=== PATIENT | female | born 1935 | race Caucasian/White ===

== ENCOUNTER 2017-03-24 11:32 | Inpatient (IN) | payer MEDICARE ==
[~2017-03-24] VITALS: Ht 165.1 cm; Wt 61.9 kg
[2017-03-24] VITALS (8 sets, daily range): BP systolic 115–148; BP diastolic 51–64
--- NOTE | ~2017-03-24 | PR ---
[place], [place] PROGRESS NOTE NAME: JENNIFER PINEDO [facility] #: [id number] UNIT #: [id number] ROOM: 420 DOCTOR: LENIN LIZARRAGA MD,ANDRES BIRTHDATE: [birth year] DOS: 03/30/2017 SUBJECTIVE: She has been noted comfortable at this time without any acute distress. The patient underwent bilateral thoracentesis yesterday. The patient is with reduction of symptoms of shortness of breath reported. OBJECTIVE: VITAL SIGNS: Shows a normal temperature this morning, respiratory rate 20, heart rate 60, blood pressure 116/50. The pulse oxygen saturation on 3 liters nasal cannula was 94% saturation ____ decreased after thoracentesis. CARDIOVASCULAR: S1, S2 is audible. LUNGS: Improvement in air entry of the lung on the right side with decreased breath sounds in the left lower lung. There were no crackles heard. There was no wheezing. ABDOMEN: Soft and nontender. EXTREMITIES: Without any acute edema. LABORATORY DATA: The patient's CBC this morning, hemoglobin 9.7, hematocrit 30.9, WBC count normal, platelet count 113,000 mildly decreased. The CBC yesterday of the patient showed similar platelet count. The CBC of the patient on the of this month was noted with normal platelet count. The renal function panel today, BUN 45, creatinine 2.99, glucose 159, potassium 3.4, chloride of 92, CO2 of 32. Assessment of the pleural fluid analysis from yesterday: The pH for the patient's pleural fluid noted at 7.40, cholesterol less than 50, triglyceride of 10, total protein of 2.2. Glucose 121. Cell count was noted with WBC 580,000, and 86% monocytes. The second pleural fluid analysis for the patient was noted with 14,000 RBCs, 277 WBCs with 55% lymphocytes, 41% monocytes. Glucose 123, total protein of 2.2, LDH 113, pH 7.44, cholesterol less than 50, albumin 1.3. Both the pleural fluid was noted consistent with the diagnosis of a transudative effusion. Urinalysis, of showed 2+ leukocyte esterase. Chest x-ray post-thoracentesis review shows almost complete resolution of the pleural fluid on the right side with complete reexpansion of the lung, area of atelectasis, small pleural fluid in the left side still cannot be excluded with the current chest x-ray. IMPRESSION: 1. The patient who has been currently treated for acute congestive heart failure also noted upyfe-lc-delvoyh injury as well. 2. Transudative effusion was removed from both the pleural spaces at the present time. 3. Overall debility is advanced age. 4. Xmvsf-jl-rocpfjp hypoxic respiratory failure. PLAN OF TREATMENT: Monitoring of the kidney function by the Cardiology Services. The patient's Eliquis was resumed after thoracentesis for the patient's long-term anticoagulation with atrial fibrillation. Titrate oxygen to maintain saturation 92% or greater at the baseline for the patient as tolerated. Additional treatment changes will be made based on progression of the illness. [place], [place] PROGRESS NOTE NAME: JENNIFER PINEDO UNIT #: [id number] ROOM: [facility] DOCTOR: LENIN LIZARRAGA MD,ANDRES BIRTHDATE: [birth year] Other supportive plan of management and care. ANDRES PHELPS MD CM:PNTRANS [id number] ANDRES LIZARRAGA MD 03/31/17 0203 interface
--- NOTE | ~2017-03-24 | CON ---
[place], [place] REPORT OF CONSULTATION [id number] UN[facility] #: [id number] ROOM: 404 DOCTOR: LENIN LIZARRAGA MDANDRES BIRTHDATE: [birth year] DOS: 03/28/2017 PULMONARY CONSULTATION EVALUATION AND MANAGEMENT CONSULTATION REQUESTED BY: Hospitalist Services. REASON FOR CONSULTATION: Assess the patient for pleural effusions. The patient unable to communicate accurately. The patient with a history noted very poor historian, unable to answer the questions correctly. All the history contained in this document is actually review of the medical record by the primary care attending for this patient. Other relationship consultant's notes as well as a nurse's notes. HISTORY OF PRESENT ILLNESS: This is an 81-year-old white female, a resident of the nursing facility brought to the hospital. The patient has been currently treated for rehabilitation. The patient has been described symptoms of shortness of breath ongoing intermittently. The patient in the last several days with gradual progression. She has not been reported any symptoms of coughing, wheezing, or chest pain in the description. She described increasing edema of the lower extremities. The patient brought to the hospital for further assessment of current acute respiratory symptom noted with finding of congestive heart failure, started on diuretics and admitted to the hospital. REVIEW OF SYSTEMS: Cannot be completed since the patient orally intubated on mechanical ventilation. PAST MEDICAL HISTORY: 1. Essential hypertension. 2. Chronic respiratory failure, on oxygen use, the number of flow liters oxygen use was unknown. 3. Coronary artery disease, past myocardial infarction. 4. Questionable dementia. 5. Hypercholesterolemia. PAST SURGICAL HISTORY: 1. Cardiac catheterization and history of coronary artery stent insertion. 2. Appendectomy. 3. Bilateral cataract extraction, lens implantation. 4. Cholecystectomy. 5. Colonoscopy. 6. Hysterectomy. FAMILY HISTORY: Reported both parents has been reported as with unknown medical illnesses. MEDICATIONS: From the half-way were recorded as use of albuterol sulfate, amiodarone, Eliquis, aspirin, Coreg, Lasix oral 40 mg daily, magnesium oxide, Protonix, simvastatin, Aldactone, several other p.r.n. medications including vitamins including vitamin C and E, zinc, copper, lutein, and some others. [place], [place] REPORT OF CONSULTATION NAME: JENNIFER PINEDO UNIT #: [id number] ROOM: [facility] DOCTOR: LENIN LIZARRAGA MD,ANDRES BIRTHDATE: [birth year] DRUG ALLERGIES: Reported as allergies to: 1. PHENACETIN. 2. QUININE. PHYSICAL EXAMINATION: GENERAL: An 81-year-old female, who has been currently resting comfortably using oxygen supplementation without any acute distress at time of the assessment. VITAL SIGNS: Height for the patient recorded by nursing staff as 5 feet 1 inch, weight of 156 pounds, BMI of 25.9 with vital signs recorded normal since admission on 03/24/2017. The respiratory rate range between 18-20, heart rate of 63-67, blood pressure 110/49-128/60. Pulse oxygen saturation on 4-5 liters nasal cannula was recorded 95-98% saturation. HEENT: Examination shows head was atraumatic. Eyes nonicterus. NECK: Supple. JVD elevated at 45 degree angle was noted to the mid neck. CARDIOVASCULAR: S1, S2 is audible without any added murmurs. ABDOMEN: Noted with moderate obesity. Bowel sounds present without any tenderness. CENTRAL NERVOUS SYSTEM: The patient was noted without any focal neurologic deficit. Remaining examination could not be performed ____ the patient's current overall medical condition. MUSCULOSKELETAL: 2+ pitting edema noted. SKIN: Showed no lesions or rashes. LABORATORY DATA: CBC of 03/24, hemoglobin 8.9, hematocrit 30.0, WBC count normal, platelet count was normal. At that time, PT/INR was 1.2. On admission 03/24, ProBNP 33,552. The CBC of this morning essentially remains the same for the patient since admission except the platelet count currently noted mildly decreased 120,000. The CMP of patient, BUN 41, creatinine 2.87. The patient recorded in today's lab with a CO2 37. The BUN and creatinine on admission was noted with BUN 44, creatinine 2.69. The CT scan of the head, which was done for patient of 03/27, was reported as left ventricular enlargement, suggested possible normal pressure hydrocephalus. Ultrasound of the kidney that was obtained yesterday was reported as renal cortical thinning without any hydronephrosis. Review of the radiology data, the chest x-ray that was done, 1 view on admission 03/24/2017, shows gagpadwj-gd-slttl pleural fluid on the right side and clsqu-fl-jygtvflg pleural fluid on the right side with findings of interstitial edema and congestive heart failure. The chest x-ray that was repeated on 13th of this month shows similar finding since admission. The chest x-ray that was done, portable on 03/27/2017, shows finding of congestive heart failure, bilateral pleural fluid with partial reduction was noted. IMPRESSION: 1. The patient who has been currently admitted to the hospital noted with finding and symptoms consistent with acute congestive heart failure, possibly to start a diastolic dysfunction since the echocardiogram was noted normal left ventricular ejection fraction. The fluid was noted much greater on the right than the left side. However, atypical etiology of pleural fluid would be considered including malignancy less likely for any infection. 2. The patient with history of chronic kidney disease, very likely with [place], [place] REPORT OF CONSULTATION NAME: JENNIFER PINEDO UNIT #: [id number] ROOM: [facility] DOCTOR: ANDRES LEON MD BIRTHDATE: [birth year] superimposed acute kidney secondary to prerenal azotemia, congestive heart failure has been considered. 3. The patient with anemia, most likely of chronic disease for this patient without any evidence of active bleeding at the present time known from the GI tract or other areas. 4. Possibility of dementia. 5. The patient with acute hypoxic respiratory failure superimposed with chronic hypoxic respiratory failure, most likely related to the current congestive heart failure. PLAN OF TREATMENT: The patient has been getting Bumex orally 2 mg b.i.d. that will be continued. Fluid for the patient essentially remains consistent and persistent. Since admission the patient may benefit from thoracentesis bilaterally with ultrasound guidance, if agreed upon by the family members. The consent will be asked for them. Otherwise, continue the patient conservative treatment at this time with expectant improvement in the pleural fluid in the long-term. Usual care. Titrate oxygen maintain saturation 92% or greater. If the thoracentesis will be planned for this patient. Certainly, the Eliquis needs to be withheld. Other supportive therapy, plan of management, and care plan of treatment. Usual treatment, other supportive therapies. Thank you for allowing me to participate in the care of this patient. ANDRES PHELPS MD CM:CONSTR:REPORT OF CONSULTATION 1337 03/28/17 2030 interface
--- NOTE | ~2017-03-24 | PR ---
[place], [place] PROGRESS NOTE [id number] #: [id number] ROOM: 420 DOCTOR: LENIN LIZARRAGA MD,ANDRES BIRTHDATE: [birth year] DOS: 03/31/2017 SUBJECTIVE: She has been comfortably resting at this time, eating her breakfast. She was noted chronic senile hearing loss. She has ____ reported symptoms of shortness of breath, coughing, chest pain or sputum expectoration this morning. OBJECTIVE: VITAL SIGNS: Normal temperature, respiratory rate 18, heart rate 62, blood pressure 118/60, pulse oxygen saturation on 3 liters nasal cannula 98% saturation. HEENT: No acute change. NECK: Supple. CARDIOVASCULAR: S1, S2 audible. LUNGS: Without any wheeze or crackles present time. ABDOMEN: Soft, nontender. LABORATORY DATA: CBC this morning, normal WBC count and platelet count. The culture of the pleural fluid, no bacterial growth. IMPRESSION: Resolving congestive heart failure with bilateral pleural fluid. IMPRESSION: 1. The patient is status post thoracentesis progressively. 2. Overall debility. 3. Advanced age. PLAN OF TREATMENT: No change in pulmonary standpoint. correction facility assessment of the patient for transfer would be considered. Other supportive plan of management. Titrate the oxygen to maintain saturation 92% or greater. ANDRES PHELPS MD CM:PNTRANS 1205 [id number] ANDRES LIZARRAGA MD 03/31/17 1424 interface
--- NOTE | ~2017-03-24 | PR ---
[place], [place] PROGRESS NOTE NAME: JENNIFER PINEDO UNIT #: [id number] ROOM: 420 DOCTOR: LENIN LIZARRAGA MD,ANDRES BIRTHDATE: [birth year] DOS: 04/01/2017 SUBJECTIVE: She has been noted quite comfortable, resting on the bed without any distress. She has been noted chronic hard of hearing. OBJECTIVE: VITAL SIGNS: Normal temperature, respiratory rate 18, heart rate 60, blood pressure 113/53. The pulse oxygen saturation with 2 liters nasal cannula of 92% saturation. HEENT: Shows no acute change. NECK: Supple. CARDIOVASCULAR: S1, S2 audible. LUNGS: The patient was noted with moderate, decreased breath sounds. There were no crackles or wheezing. ABDOMEN: Soft, nontender. IMPRESSION: Stable respiratory status, resolving congestive heart failure, status post thoracentesis with improving acute hypoxic and chronic hypoxic respiratory failure. PLAN OF TREATMENT: No changes in the management, current therapy, titrate oxygen, maintain saturation 90% later, and transferred to the nursing facility upon acceptance. ANDRES PHELPS MD CM:PNEMILY [id number] ANDRES LIZARRAGA MD 04/01/17 1830 interface
--- NOTE | ~2017-03-24 | PROC NOTE ---
[place], [place] PROCEDURE NOTE NAME: [id number] #: [id number] ROOM: 420 DOCTOR: LENIN LIZARRAGA MD,ANDRES BIRTHDATE: [birth year] DOS: 03/29/2017 PROCEDURE: Right thoracentesis, ultrasound guided. PREOPERATIVE DIAGNOSIS: The patient with moderate pleural fluid. POSTOPERATIVE DIAGNOSIS: Removal of 350 mL mildly hemorrhagic pleural fluid from the right pleural space without any difficulty. PROCEDURE DESCRIPTION: Informed consent obtained from the patient's son. She was placed in sitting position. Ultrasound of the chest was performed. The site of thoracentesis in the right posterior lower chest wall was marked. After that, skin was cleaned with chlorhexidine solution. 1% lidocaine was administered in the skin intercostal space during administration of local anesthetic, right pleural space was entered. After that, small incision given in the skin. Turkel thoracentesis catheter introduced through the incision into the right pleural space. Pleural fluid was collected in vacuum bottles and the other specimen syringe. The pleural fluid sent for all the testing including cytology, pH, chemistry, cell count and differential. Procedure well tolerated. ANDRES PHELPS MD CM:PROCNOTE:PROCEDURE NOTE 1423 [id number] ANDRES LIZARRAGA MD
--- NOTE | ~2017-03-24 | PROC NOTE ---
[place], [place] PROCEDURE NOTE NAME: JENNIFER PINEDO [facility] #: [id number] UNIT #: [id number] ROOM: 420 DOCTOR: LENIN LIZARRAGA MD,ANDRES BIRTHDATE: [birth year] DOS: 03/29/2017 PROCEDURE: Left thoracentesis. PREOPERATIVE DIAGNOSIS: The patient with moderate left pleural fluid. POSTOPERATIVE DIAGNOSIS: Removal of 550 mL of pleural fluid from the left pleural space without any difficulty. PROCEDURE DESCRIPTION: Informed consent was already obtained. The ultrasound of the chest was personally performed. The site of thoracentesis was marked. Skin was cleaned with chlorhexidine solution. Lidocaine 1% was administered in the skin of the intercostal space. After that, a small amount of fluid was aspirated from the left pleural space. Small incision given in the skin. Turkel thoracentesis catheter inserted through the incision into the left pleural space without any difficulty. Total 550 mL pleural fluid was collected, which was sent for all the necessary tests including specimen for chemistry, cell count with the differential, and the pH as well as cytology. The procedure was well tolerated by the patient. Ultrasound of the chest was performed in the right and left sides, which does not show any complication. The chest x-ray was ordered for the patient for further assessment of the improvement in the aeration of the pleural ____. All the appropriate testing of the pleural fluid was ordered as well. Monitor results of the thoracentesis for this patient as well. ANDRES PHELPS MD CM:PROCNOTE:PROCEDURE NOTE 1425 [id number] ANDRES LIZARRAGA MD
--- NOTE | ~2017-03-24 | PR ---
[place], [place] PROGRESS NOTE [id number] #: [id number] ROOM: 404 DOCTOR: LUZ VU MD BIRTHDATE: [birth year] DOS: 03/28/2017 SUBJECTIVE: The patient was seen and examined. She is resting comfortably in bed. She is in no acute distress. PHYSICAL EXAMINATION: VITAL SIGNS: Showed temperature 98.0, pulse 72, respiratory rate 20, blood pressure 120/60. HEENT AND NECK: Shows no JVD. LUNGS: Diminished breath sounds. No wheeze. HEART: Normal S1, S2. No rub. ABDOMEN: Soft, nontender. No organomegaly. EXTREMITIES: Trace edema. SKIN: Showed no rash. LABORATORY DATA: Hemoglobin 8.8, white count of 6.1, platelets of 120. Sodium 141, potassium 4.0, CO2 of 37, BUN 41, creatinine of 2.9, calcium 8.5, phosphorus 3.0, magnesium 2.0, albumin of 2.9. IMPRESSION AND PLAN: 1. Chronic kidney disease with an unclear true baseline creatinine. The patient's creatinine levels have been stable. Continue to follow labs while in the hospital. Replace electrolytes as felt needed. 2. Apparent congestive heart failure. Continue ongoing supportive care. Diuretics as felt needed. The patient's CO2 is rising. Would watch volume status and consider decreasing Bumex. 3. Anemia. Suspect of chronic disease. H and H are fairly stable. Consideration can be made for workup of this and possible erythropoietin stimulating agents at some point. 4. Paroxysmal atrial fibrillation. The patient is on amiodarone and Eliquis. Continue ongoing supportive care. LUZ VU MD CM:PNTRANS [id number] LUZ VU MD 03/28/17 1704 interface
--- NOTE | ~2017-03-24 | PR ---
[place], [place] PROGRESS NOTE NAME: JENNIFER PINEDO UNIT #: [id number] ROOM: 420 DOCTOR: ANDRES LEON MD BIRTHDATE: [birth year] DOS: 03/29/2017 SUBJECTIVE: She has not been noted any ongoing acute new symptoms at this time. Shortness of breath was noted. She was continued diuretic therapy and other plan of management. The patient's son did agree for thoracentesis to be done today at the bedside for the patient for the assessment and management of the current pleural fluid, which was diagnostic and therapeutic at the same time. OBJECTIVE: VITAL SIGNS: For the patient which has been recorded showed normal temperature, respiratory rate 16, heart rate 52-58, blood pressure 132/56 and 119/63. Pulse oxygen saturation recorded as 94% on 3.5 liter nasal cannula. The intake for the patient as 960 and output 2150 mL, negative 1.190 liters. HEENT: Showed no acute change. NECK: Supple. CARDIOVASCULAR: S1, S2 audible. LUNGS: Decreased breath sounds lower portion of the lungs bilaterally. ABDOMEN: Soft, nontender. Bowel sounds present. EXTREMITIES: The patient is without any edema. LABORATORY DATA: Renal function panel today, BUN 47, creatinine 2.96. CO2 of 40. CBC this morning, hemoglobin 9.1, hematocrit 29.9, WBC count normal, platelet count was normal. IMPRESSION: 1. Bilateral pleural fluid greater on the left than the right side. 2. Acute kidney injury as well. 3. Metabolic alkalosis secondary to diuretic therapy for the patient as well. 4. Acute on chronic hypoxic respiratory failure. PLAN OF TREATMENT: Thoracentesis to be done for the patient at the bedside for this patient as the ultrasound assessment was performed. The moderate sized pleural fluid noted for this patient on the left side and small to moderate pleural fluid in the right side as well. The consent is already obtained for the patient's son. [place], [place] PROGRESS NOTE NAME: JENNIFER PINEDO UNIT #: [id number] ROOM: 420 DOCTOR: ANDRES LEON MD BIRTHDATE: [birth year] ANDRES PHELPS MD CM:PNTRANS [phone] ANDRES LIZARRAGA MD 03/29/172230 interface
[2017-03-24 12:40] LABS: BASO % 0.4 % (0.0-1.0); EOS % 0.5 % (1.0-4.0); HEMOGLOBIN 8.9 g/dl (12.0-16.0); LYMPH # 0.5 10*3/uL (1.3-4.4); LYMPH % 9.4 % (27.0-41.0); MEAN CELL VOLUME 103.4 fl (81.0-99.0); MEAN CORPUSCULAR HGB 30.7 pg (27.0-31.0); MEAN CORPUSCULAR HGB CONC 29.7 g/dl (33.0-37.0); MEAN PLATELET VOLUME 10.6 fl (9.6-12.3); MONO # 0.3 10*3/uL (0.1-1.0); MONO % 4.9 % (3.0-9.0); NEUT # 4.7 10*3/uL (2.3-7.9); NEUT % 84.3 % (47.0-73.0); PLATELET COUNT AUTOMATED 148 10*3/uL (130-400); RED CELL DISTRI WIDTH 18.5 % (0-14.5); WHITE BLOOD COUNT 5.5 10*3/uL (4.8-10.8)
[2017-03-24 12:49] LABS: INTERNATIONAL NORM RATIO 1.2 (2.0-3.5)
[2017-03-24 12:57] LABS: ALBUMIN 3.2 gm/dl (3.1-4.5); CREATININE 2.69 mg/dL (0.55-1.02); POTASSIUM 4.4 mmol/L (3.5-5.1); TOTAL PROTEIN 6.6 gm/dL (6.4-8.2); TROPONIN I 0.045 ng/ml (<0.045)
--- NOTE | 2017-03-24 14:13 | NUR ---
[facility] CATH OUTPUT 500 CC'S CLEAR PALE YELLOW AT THIS TIME AFTER BEING GIVEN IV LASIX (SEE EMAR).RESP EASY PULSE OX 94 ON 3 12L---TAMIE GARCIA RN
--- NOTE | 2017-03-24 14:52 | NUR ---
PT BEING ADMITTED.DNR CC BAND APPLIED. [facility] CARE STAFF MEMBER MABEL IS AWARE OF PT ADMISSION AT THIS TIME.---TAMIE GARCIA RN
--- NOTE | 2017-03-24 15:10 | NUR ---
A 81, admitted to , under the services of BRAD Clinton DO with a diagnosis of CHF. Chief complaint is SOB. Patient arrived via bed from ER. Monitor applied. Initial assessment completed. Vital signs taken and recorded. BRAD CLINTON DO notified of admission to the unit. Orders received. See assessment for past medical history, medications and allergies. Patient and/or family oriented to unit. [facility] reviewed. Clothing/patient valuable form completed. PARVEZ ECHEVARRIA
--- NOTE | 2017-03-24 15:15 | NUR ---
PT REPORTS THAT SHE HAS ALREADY HAD BOTH THE INFLUENZA AND PNEUMONIA VACCINES THIS SEASON.
[2017-03-24] MEDS ORDERED: ASPIRIN ADULT L81 M2 PO (15:47)
[2017-03-24] MEDS ORDERED: LASIX40 MG PO (15:47)
[2017-03-24] MEDS ORDERED: Magnesium Oxid400 MG PO (15:48)
[2017-03-24] MEDS ORDERED: ALDACTONE25 M1 PO (15:48)
[2017-03-24] MEDS ORDERED: PROTONIX40 MG PO (15:49)
[2017-03-24] MEDS ORDERED: AMIODARONE HCL400 MG PO (15:49)
[2017-03-24] MEDS ORDERED: SIMVASTATIN40 MG PO (15:50)
[2017-03-24] MEDS ORDERED: COREG6.25 MG PO (15:50)
[2017-03-24] MEDS ORDERED: ELIQUIS2.5 M1 PO (15:51)
[2017-03-24] MEDS ORDERED: PRESERVISION A1 EAC1 PO (15:51)
[2017-03-24] MEDS ORDERED: TYLENOL325 M1 PO (15:52)
[2017-03-24] MEDS ORDERED: ALBUTEROL0.63 MG/3 INH (15:53)
--- NOTE | 2017-03-24 15:56 | NUR ---
jose ledezma notified og pt arrival and med list verified.
[2017-03-25] VITALS: BP 99/40
--- NOTE | 2017-03-25 04:07 | NUR ---
PT RESTING IN BED. RESPIRATIONS ARE EASY AND REGULAR WITH NO DISTRESS NOTED.
[2017-03-25 08:00] VITALS: BP 117/44
[2017-03-25 08:23] LABS: ALBUMIN 3.1 gm/dl (3.1-4.5); BASO % 0.5 % (0.0-1.0); CREATININE 2.64 mg/dL (0.55-1.02); EOS # 0.2 10*3/uL (0.0-0.4); EOS % 2.8 % (1.0-4.0); HEMATOCRIT 28.7 % (37.0-47.0); HEMOGLOBIN 8.6 g/dl (12.0-16.0); LYMPH # 0.7 10*3/uL (1.3-4.4); LYMPH % 11.5 % (27.0-41.0); MEAN CELL VOLUME 102.1 fl (81.0-99.0); MEAN CORPUSCULAR HGB 30.6 pg (27.0-31.0); MEAN PLATELET VOLUME 11.4 fl (9.6-12.3); MONO # 0.4 10*3/uL (0.1-1.0); NEUT # 4.7 10*3/uL (2.3-7.9); NEUT % 77.9 % (47.0-73.0); PLATELET COUNT AUTOMATED 155 10*3/uL (130-400); POTASSIUM 4.3 mmol/L (3.5-5.1); RED BLOOD COUNT 2.81 10*6/uL (4.10-5.10); RED CELL DISTRI WIDTH 18.6 % (0-14.5); TOTAL PROTEIN 6.2 gm/dL (6.4-8.2)
--- NOTE | 2017-03-25 08:33 | NUR ---
[facility] Ok to return when medically stable for discharge.
[2017-03-25 08:35] LABS: FREE T4 1.41 ng/dl (0.76-1.46); THYROID STIM HORMONE (HS) 3.17 uIU/ml (0.358-4.75)
[2017-03-25 08:51] LABS: PHOSPHOROUS 3.6 mg/dL (2.5-4.9)
--- NOTE | 2017-03-25 09:00 | NUR ---
case management visits with patient, patient states she is from [facility] and would like to return when able
--- NOTE | 2017-03-25 09:22 | NUR ---
PHYSICAL THERAPY PAtient at xray. Amber Sarabia,PT
--- NOTE | 2017-03-25 09:27 | NUR ---
Patient not available for Occupational Therapy as she was out of her room for an xray. OTR will recheck at a later time. Aishwarya Abbasi OTR/l
[2017-03-25 09:55] LABS: VITAMIN D, 25-HYDROXY 38.8 ng/mL (30-100)
--- NOTE | 2017-03-25 11:15 | NUR ---
DR BENZ OFFICE NOTIFIED OF THE NEW CONSULT FOR ACUTE ON CHRONIC CHF
--- NOTE | 2017-03-25 11:31 | NUR ---
Nutritional Support Services Note: Discussing with pt cardiac diet and salt intake. Diet copy given to pt. Pt states her appetite is very good. Discouraged intake of high salt foods. Encouraged follow up if needed. Farzaneh Hou
--- NOTE | 2017-03-25 11:53 | NUR ---
Occupational Therapy evaluation completed this date on 4 with full eval to follow. Precautions include fall risk, max +2 for sit to stand,bush, IV UE,wheezing at rest,O2, high complexity level 84194. Recommend OT per POC and SNF upon d/c to enable max functioning in ADLS and functional mobility. Thank you for this referral. Aishwarya Abbasi OTR/l
[2017-03-25 12:00] VITALS: BP 102/60
--- NOTE | 2017-03-25 12:42 | NUR ---
PHYSICAL THERAPY PAtient evaluated on 4, full evaluation to follow. Continue with PT as per plan of care with fall, max (A) x 2, alarm and acute debility precautions. Suggest return to custodial care with PT prn to return to PLOF. PAtient is high complexity via chart review, tests and evaluation: [id number]. Thank you for this referral.Amber Salguero,PT
--- NOTE | 2017-03-25 13:48 | NUR ---
PHYSICAL THERAPY Patient presented to therapy with report of no pain , but needing to go to an eye doctor appointment tommorrow. Patient performed ther ex in sitting at EOB X 20 reps each LE in all planes. Patient transfered supine t ositting at EOB with Max A X 1. pATIENT TRANSFERED BACK TO SUPINE mAX a x 1. 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
[2017-03-25 16:00] VITALS: BP 124/60
[2017-03-25 20:00] VITALS: BP 115/54
[2017-03-26] VITALS: BP 110/52
--- NOTE | 2017-03-26 00:40 | NUR ---
24 HR chart check completed.
[2017-03-26 07:25] LABS: RETICULOCYTE % 3.44 % (0.50-2.50)
[2017-03-26 07:56] LABS: IRON 45 ug/dL (50-170); TOTAL IRON BINDING CAPACITY 264 ug/dl (250-450)
[2017-03-26 08:00] VITALS: BP 135/52
--- NOTE | 2017-03-26 08:25 | NUR ---
DR RAMEY IN TO SEE PT AT THIS TIME.
--- NOTE | 2017-03-26 08:35 | NUR ---
PT COMPLAINING OF SOB, STATES SHE DOESN'T FEEL LIKE SHE'S GETTING ENOUGH OXYGEN; O2 SAT CHECKED ONLY 88% ON 2L NC, INCREASED OXYGEN TO 4L NC, O2 SAT CAME UP TO 92%. I&E WHEEZES HEARD THROUGHOUT. AFTER INCREASING OXYGEN, PT STATES HER RESPIRATIONS ARE LESS LABORED. PT EATING BREAKFAST AT THIS TIME WITH ASSISTANCE OF THE PA. CALL LIGHT WITHIN REACH.
[2017-03-26 09:00] LABS: FERRITIN 253.6 ng/mL (10.0-291.0)
--- NOTE | 2017-03-26 09:19 | NUR ---
DR RAMEY CALLED REGARDING PT'S COMPLAINTS OF "MY HEAD AND STOMACH DOESN'T FEEL RIGHT" UPDATED ON PT'S VITALS AND HAVING TO INCREASE OXYGEN BACK TO 4L NC, PT AT 92%. PT NOT ON ULTIMATE HOOPS TRAINER DUE TO BEING DNR-CC, ONLY ONE TROPONIN DRAWN ON ADMISSION, WHICH WAS NEGATIVE. STATES HE WILL ORDER ZOFRAN AND WILL REASSESS PT IN AN HOUR.
--- NOTE | 2017-03-26 09:36 | NUR ---
MEDICATED WITH TYLENOL FOR COMPLAINTS OF HEADACHE. WILL MONITOR FOR EFFECTIVENESS. CALL LIGHT WITHIN REACH.
[2017-03-26 11:15] LABS: CREATININE 2.75 mg/dL (0.55-1.02); POTASSIUM 4.3 mmol/L (3.5-5.1)
--- NOTE | 2017-03-26 11:39 | NUR ---
MEDICATED PT WITH ZOFRAN FOR COMPLAINTS OF UPSET STOMACH. WILL MONITOR FOR EFFECTIVENESS. STATES EARLIER TYLENOL EFFECTIVE FOR HEADACHE RELIEF.
[2017-03-26 12:00] VITALS: BP 113/48
--- NOTE | 2017-03-26 12:30 | NUR ---
PT RESTING IN BED, NO DISTRESS NOTED. MEDICATIONS EFFECTIVE,
--- NOTE | 2017-03-26 13:07 | NUR ---
Pt was seen for 15 minutes & short session due to lunch arriving. With set up, pt washed face, combed hair & applied lotion to face & hands. Educated pt on correct breathing exercises (pursed lip breathing) to enhance ADL endurance with 2 cues for correct procedures. Continue with POC. Namita MARK
--- NOTE | 2017-03-26 14:52 | NUR ---
PHYSICAL THERAPY Patient refused therapy this date due to not feeling well and being very tired. RILEY MOORE PTA
[2017-03-26 16:00] VITALS: BP 105/44
--- NOTE | 2017-03-26 16:23 | NUR ---
DR BAUER IN TO SEE PT AT THIS TIME.
[2017-03-26 20:00] VITALS: BP 110/49
[2017-03-27] VITALS: BP 127/59
--- NOTE | 2017-03-27 00:40 | NUR ---
24 HR chart check completed.
--- NOTE | 2017-03-27 06:40 | NUR ---
Patient confused to where she is. Attempted to reorient. Patient wanting to talk with family. Called patient's son. He talked with her but she doesn't believe him. Wanting to talk to her doctor.
--- NOTE | 2017-03-27 06:44 | NUR ---
Called and notified Dr. Waddell regarding patient's confusion and wanting to talk with the doctor. He said he would come in a few minutes.
--- NOTE | 2017-03-27 06:46 | NUR ---
Dr. Waddell in to talk with patient. Patient remains confused. 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 Waddell talked with patient and was unable to reorient patient. He said he will turn this over to Dr. Graves. He said if she gets combative then call the doctors.
--- NOTE | 2017-03-27 07:00 | NUR ---
PT REFUSING MORNING BLOOD DRAW.
--- NOTE | 2017-03-27 07:40 | NUR ---
OCCUPATIONAL THERAPY CO-SIGN I approve of the Occupational Therapy notes written above. JAYLA SYKES OTR/Yoko
[2017-03-27 08:00] VITALS: BP 155/57
--- NOTE | 2017-03-27 08:01 | NUR ---
LAB CONTACTED TO REATTMEPT TO DRAW AM LABS.
[2017-03-27 08:13] LABS: BASO % 0.4 % (0.0-1.0); EOS # 0.2 10*3/uL (0.0-0.4); EOS % 2.6 % (1.0-4.0); HEMATOCRIT 34.1 % (37.0-47.0); HEMOGLOBIN 10.1 g/dl (12.0-16.0); LYMPH # 0.9 10*3/uL (1.3-4.4); MEAN CELL VOLUME 102.7 fl (81.0-99.0); MEAN CORPUSCULAR HGB 30.4 pg (27.0-31.0); MEAN CORPUSCULAR HGB CONC 29.6 g/dl (33.0-37.0); MEAN PLATELET VOLUME 10.4 fl (9.6-12.3); MONO # 0.5 10*3/uL (0.1-1.0); MONO % 6.4 % (3.0-9.0); NEUT # 6.5 10*3/uL (2.3-7.9); NEUT % 79.2 % (47.0-73.0); PLATELET COUNT AUTOMATED 137 10*3/uL (130-400); RED BLOOD COUNT 3.32 10*6/uL (4.10-5.10); RED CELL DISTRI WIDTH 18.2 % (0-14.5); WHITE BLOOD COUNT 8.2 10*3/uL (4.8-10.8)
[2017-03-27 08:27] LABS: ALBUMIN 3.4 gm/dl (3.1-4.5); CREATININE 2.87 mg/dL (0.55-1.02); PHOSPHOROUS 3.5 mg/dL (2.5-4.9); POTASSIUM 4.5 mmol/L (3.5-5.1); TOTAL PROTEIN 7.1 gm/dL (6.4-8.2)
--- NOTE | 2017-03-27 09:01 | NUR ---
[facility]
[2017-03-27 12:00] VITALS: BP 127/49
--- NOTE | 2017-03-27 12:45 | NUR ---
PATIENT SEEN 1:1 OT THIS DATE. PATIENT IDENTIFIED BY NAME AND DATE OF . PATIENT SEEN 17 MINUTES. PATIENT IN BED UPON ARRIVAL AND WILLING TO SIT EOB. COMPLETED SUPINE TO SIT EOB MOD A X 2. PATIENT DEMONSTRATED P/P+ SIT BAL EOB WITH MOD/MAX ASSISTS REQUIRED AND VERBAL CUES SECONDARY LEFT LATERAL LEAN. COMPLETED MINIMAL BUE AROM REACHING OVER HEAD WITH PATIENT DEMONSTRATING FATIGUE. PATIENT EASILY DISTRACTED. COMPLETED SIT TO SUPINE MOD A X 2 WITH PATIENT DEP PULL UP IN BED FOR INCREASE POSTURE. PATIENT IN BED WITH RAIL. BED ALARM, AND CALL LIGHT WITHIN REACH. ANNA WHITEHEAD/Yoko
--- NOTE | 2017-03-27 13:29 | NUR ---
PHYSICAL THERAPY Patient presented to therapy in supine with no complaints. Patient performed supine to sitting at EOB transfer with MAX A X 2. Patient performed sitting tolerance at EOB with MOD A X 2 for 10 minutes total. Patient had LEFT lean and poor posture during sitting tolerance requiring MOD A X 2 and verbal cues for the same. Patient was transfered back to supine in bed MAX X 2. Patient was left supine in bed with head raised and call light within reach. Patient's bed alarm was activated. RILEY MOORE PRODUCTION SUPPORT SPECIALIST
--- NOTE | 2017-03-27 14:19 | NUR ---
DR MEJIA OFFICE WAS CONTACTED FOR A NEW CONSULT FOR CKD.
--- NOTE | 2017-03-27 14:20 | NUR ---
ATTEMPTED TO CONTACT DR PHELPS BY ON CELL PHONE HOWEVER THERE WAS NO ANSWER.
--- NOTE | 2017-03-27 14:26 | NUR ---
DR. PHELPS WAS CONTACTED FOR A NEW CONSULT FOR PLUERAL EFFUSION.
[2017-03-27 15:16] LABS: URINE CREATININE RANDOM 13.1 mg/dL
[2017-03-27 16:00] VITALS: BP 115/54
[2017-03-27 20:00] VITALS: BP 142/57
[2017-03-28] VITALS: BP 104/52
[2017-03-28 06:52] LABS: BASO % 0.3 % (0.0-1.0); EOS # 0.2 10*3/uL (0.0-0.4); EOS % 2.5 % (1.0-4.0); HEMOGLOBIN 8.8 g/dl (12.0-16.0); LYMPH # 0.7 10*3/uL (1.3-4.4); LYMPH % 11.9 % (27.0-41.0); MEAN CELL VOLUME 100.7 fl (81.0-99.0); MEAN CORPUSCULAR HGB 30.6 pg (27.0-31.0); MEAN CORPUSCULAR HGB CONC 30.3 g/dl (33.0-37.0); MEAN PLATELET VOLUME 10.9 fl (9.6-12.3); MONO # 0.5 10*3/uL (0.1-1.0); MONO % 7.4 % (3.0-9.0); NEUT # 4.7 10*3/uL (2.3-7.9); NEUT % 77.6 % (47.0-73.0); PLATELET COUNT AUTOMATED 120 10*3/uL (130-400); RED BLOOD COUNT 2.88 10*6/uL (4.10-5.10); WHITE BLOOD COUNT 6.1 10*3/uL (4.8-10.8)
[2017-03-28 07:04] LABS: ALBUMIN 2.9 gm/dl (3.1-4.5); CREATININE 2.87 mg/dL (0.55-1.02); TOTAL PROTEIN 6.1 gm/dL (6.4-8.2)
[2017-03-28 08:00] VITALS: BP 126/52
[2017-03-28 12:00] VITALS: BP 128/60
--- NOTE | 2017-03-28 13:45 | NUR ---
DR. Moon called in and states he wants to do a BL thoracentesis on pt tomorrow if family is agreeable and to notify them of this. States to let him know what they say. I called pt son Rafat Dunbar and left a message. Will try again.
--- NOTE | 2017-03-28 15:38 | NUR ---
Physical Therapy Pt seen this PM for her therapy session. Pt was supine in bed upon arrival. Supine B LE ther ex performed in all planes x 20 reps. Max tactile cues provided for reinitiation during exercise, as well as verbal for proper sequence. Pt refused to do transfer because she just laid down to rest. Pt left supine in bed after therapy session with call light within reach. Sun Fernando, FILTER PLANT SUPERVISOR
[2017-03-28 16:00] VITALS: BP 98/50
--- NOTE | 2017-03-28 17:10 | NUR ---
Pt son and daughter in law here to visit. Updated on plan of care and Dr. Moon recommending BL thoracentesis is family is agreeable. Pt son states that he knows what this procedure is as his uncle had it. States he is agreeable to his mother having it. I notified Dr. Moon of this.
[2017-03-28 17:45] LABS: BILIRUBIN NEGATIVE (NEGATIVE); BLOOD 1+ (NEGATIVE); CLARITY CLEAR (CLEAR); COLOR YELLOW (YELLOW); GLUCOSE NEGATIVE (NEGATIVE); KETONE NEGATIVE (NEGATIVE); LEUKO ESTERASE 2+ (NEGATIVE); NITRITE NEGATIVE (NEGATIVE); UROBILINOGEN 0.2 E.U./dl (0.2-1.0)
[2017-03-28 18:02] LABS: BACTERIA 2+; EPITHELIAL CELLS 0-2; WBC 21-30 wbc/hpf (0-5)
[2017-03-28 20:01] VITALS: BP 131/53
--- NOTE | 2017-03-28 20:31 | NUR ---
ASSUMED CARE OF PT. PT IN BED, LAYING DOWN. BEDSIDE TABLE ACROSS LAP, WEARING NC. PT VOICES CONCERNS WITH STAFF AND HOSPITAL FOOD. AFTER TALKING WITH THE PT, THIS NURSE RETRIEVED THE PT A SMALL SNACK. PT SEEMS TO BE ANXIOUS DURING INITIAL SHIFT ASSESSMENT. WHEN CHECK THE PTs IV, IT WAS NO WHERE TO BE FOUND. PT STATED "I PULLED IT OUT. I DIDNT WANT IT IN." WHEN ASKED IF THIS NURSE COULD REPLACE IT, THE PT STATED "NO, I DONT WANT IT." PT SEEMED AGITATED. WILL CONTINUE TO MONITOR.
--- NOTE | 2017-03-28 20:48 | NUR ---
TALKED TO REGARDING PTs REFUSAL OF RESTARTING AN IV. PER , THE IV WILL NOT BE RESTARTED.
--- NOTE | 2017-03-28 23:02 | NUR ---
CALLED AND SPOKE TO CHANDAN REGARDING PT AGITATION AND ATTEMPTNG TO PULL OUT DOHERTY CATHETER. ORDERS RECEIVED
[2017-03-29] VITALS: BP 100/62
--- NOTE | 2017-03-29 02:44 | NUR ---
24HR CHART CHECK COMPLETED.
--- NOTE | 2017-03-29 05:39 | NUR ---
PT IN BED, EYES CLOSED, RESTING. PT EASILY AROUSED. TOLERATED MEDICATIONS WELL. WILL CONTINUE TO MONITOR.
[2017-03-29 07:45] LABS: BASO % 0.5 % (0.0-1.0); EOS # 0.2 10*3/uL (0.0-0.4); EOS % 2.7 % (1.0-4.0); HEMATOCRIT 29.9 % (37.0-47.0); HEMOGLOBIN 9.1 g/dl (12.0-16.0); LYMPH # 0.9 10*3/uL (1.3-4.4); LYMPH % 14.4 % (27.0-41.0); MEAN CORPUSCULAR HGB 30.4 pg (27.0-31.0); MEAN CORPUSCULAR HGB CONC 30.4 g/dl (33.0-37.0); MEAN PLATELET VOLUME 11.4 fl (9.6-12.3); MONO # 0.5 10*3/uL (0.1-1.0); MONO % 8.7 % (3.0-9.0); NEUT # 4.5 10*3/uL (2.3-7.9); NEUT % 73.2 % (47.0-73.0); PLATELET COUNT AUTOMATED 113 10*3/uL (130-400); RED BLOOD COUNT 2.99 10*6/uL (4.10-5.10); RED CELL DISTRI WIDTH 17.9 % (0-14.5); WHITE BLOOD COUNT 6.2 10*3/uL (4.8-10.8)
[2017-03-29 08:00] VITALS: BP 119/63
[2017-03-29 08:11] LABS: CREATININE 2.96 mg/dL (0.55-1.02); PHOSPHOROUS 2.9 mg/dL (2.5-4.9); POTASSIUM 3.6 mmol/L (3.5-5.1)
--- NOTE | 2017-03-29 08:15 | NUR ---
PT RESTING UP IN BED EATING BREAKFAST, ORIENTED, BUT DISGRUNTLED THIS MORNING. LUNG SOUNDS DIMINISHED, NO DISTRESS NOTED, PT ON 3.5L NC HUMIDIFIED AT THIS TIME. PT STATES HER BREATHING HAS IMPROVED. EDEMA IN HER LOWER LEGS HAS MARKEDLY DECREASED, 1+ EDEMA NOTED TO BILATERAL LOWER EXTREMITIES. PT DENIES ANY PAIN AT THIS TIME. CALL LIGHT WITHIN REACH.
[2017-03-29 12:00] VITALS: BP 132/56
--- NOTE | 2017-03-29 12:00 | NUR ---
DR PHELPS HERE AT THIS TIME FOR BEDSIDE ULTRASOUND GUIDED THORACENTESIS. CONSENT SIGNED, EDUCATED PT ON PROCEDURE. DR COLLECTED 350ML OF BLOODY PLEURAL FLUID FROM RIGHT LUNG, AND 550ML OF LIGHT PINK PLEURAL FLUID FROM LEFT. PT TOLERATED WELL. UPDATED SON ON PT'S CONDITION. CALL LIGHT WITHIN REACH OF PT.
[2017-03-29 12:47] LABS: BODY FLUID WBC 587 /uL
[2017-03-29 12:55] LABS: BODY FLUID WBC 277 /uL
[2017-03-29 13:43] LABS: BF LYMPHOCYTES 8 %; BF MONOCYTES 86 %; BF NEUTROPHILS 6 %
[2017-03-29 13:55] LABS: BF LYMPHOCYTES 55 %; BF MONOCYTES 41 %; BF NEUTROPHILS 4 %
--- NOTE | 2017-03-29 14:36 | NUR ---
PT RESTING IN BED, NO DISTRESS NOTED. PT DROWSY, BUT ARROUSABLE. PT'S O2 SAT 99-100% ON 3L NC. CALL LIGHT WITHIN REACH, BED ALARM MAINTAINED.
[2017-03-29 16:00] VITALS: BP 136/54
[2017-03-29 20:00] VITALS: BP 110/67
--- NOTE | 2017-03-29 20:11 | NUR ---
PATIENT RESTING IN BED. ARROUSES WITH VERBAL STIMULI. WILL NOT ANSWER QUESTIONS AT THIS TIME. BED IN LOWEST POSITION, BED ALARM ON, CALL LIGHT IN REACH
--- NOTE | 2017-03-29 20:33 | NUR ---
24 HR chart check completed.
--- NOTE | 2017-03-29 21:21 | NUR ---
PATIENT REORIENTED TO TIME AND PLACE. STATES SHE DOES NOT KNOW WHY SHE IS HERE OR WHO IS TAKING CARE OF HER. REMINDED ABOUT HER REASON FOR HER VISIT AND HER DOCTORS NAMES. BED IN LOWEST POSITION, BED ALARM ON, CALL LIGHT IN REACH
[2017-03-30] VITALS: BP 107/44
--- NOTE | 2017-03-30 02:05 | NUR ---
PT KEEPS TRYING TO CLIMB OUT OF BED, YELLING, TRYING TO PULL OUT DOHERTY. REFUSING PO ATIVAN. CALLED AND SPOKE TO DR WONG. ORDER RECEIVED FOR IM HALDOL 5MG NOW.
--- NOTE | 2017-03-30 06:03 | NUR ---
PATIENT SITTING IN CHAIR AT BEDSIDE. NO NEEDS MADE. REORIENTED TO PLACE AND TIME. BODY ALARM ON, BED IN LOWEST POSITOIN, CALL LIGHT IN REACH
--- NOTE | 2017-03-30 07:55 | NUR ---
OCCUPATIONAL THERAPY CO-SIGN I approve of the Occupational Therapy notes written above. JAYLA SYKES OTR/Yoko
[2017-03-30 08:00] VITALS: BP 116/50
[2017-03-30 09:41] LABS: BASO % 0.5 % (0.0-1.0); EOS # 0.1 10*3/uL (0.0-0.4); EOS % 1.4 % (1.0-4.0); HEMATOCRIT 30.9 % (37.0-47.0); HEMOGLOBIN 9.7 g/dl (12.0-16.0); LYMPH # 0.7 10*3/uL (1.3-4.4); LYMPH % 11.1 % (27.0-41.0); MEAN CELL VOLUME 99.7 fl (81.0-99.0); MEAN CORPUSCULAR HGB 31.3 pg (27.0-31.0); MEAN CORPUSCULAR HGB CONC 31.4 g/dl (33.0-37.0); MEAN PLATELET VOLUME 10.9 fl (9.6-12.3); MONO # 0.4 10*3/uL (0.1-1.0); NEUT # 5.1 10*3/uL (2.3-7.9); NEUT % 79.8 % (47.0-73.0); PLATELET COUNT AUTOMATED 113 10*3/uL (130-400); RED CELL DISTRI WIDTH 17.8 % (0-14.5); WHITE BLOOD COUNT 6.3 10*3/uL (4.8-10.8)
[2017-03-30 10:04] LABS: CREATININE 2.99 mg/dL (0.55-1.02); PHOSPHOROUS 2.8 mg/dL (2.5-4.9); POTASSIUM 3.4 mmol/L (3.5-5.1)
--- NOTE | 2017-03-30 11:34 | NUR ---
PHYSICAL THERAPY Patient performed sit to stand transfer with MOD A X 2. Patient performed gait with W/W for 3' x 1 with MOD A X 2. Patient was left in seated position with table locked in place and body alarm attached. RILEY MOORE ASSISTANT IMPORT MANAGER
[2017-03-30 12:00] VITALS: BP 116/74
--- NOTE | 2017-03-30 13:00 | NUR ---
PATIENT SEEN 1:1 OT THIS DATE 15 MINUTES. PATIENT IDENTIFIED BY NAME AND DATE OF . PATIENT COMPLETED SIT TO STAND FROM RECLINER MOD A X 2 AND COMPLETED FUNCTIONAL AMBULATION MOD A X 2 USE FWW SUPPORT SHORT DISTANCE WITH PATIENT VERBALIZING THAT WAS ALL SHE COULD DO IN AM. PATIENT SEATED IN RECLINER WITH LAP TRAY AND CHAIR ALARM IN PLACE WITH CALL LIGHT. ATTEMPTED THERAPY IN PM WITH PATIENT VERBALIZING "I DON'T WANT TO." ANNA ALVARADO
[2017-03-30 16:00] VITALS: BP 109/76
[2017-03-30 20:00] VITALS: BP 125/59
--- NOTE | 2017-03-30 21:44 | NUR ---
DR SANTOS AWARE OF PATIENT HEART RATE 63 AND BP. STATES TO HOLD COREG NOW
--- NOTE | 2017-03-30 23:04 | NUR ---
SPOKE WITH DR PERES REGARDING PATIENT'S URINE CULTURE AND NO ANTIBIOTICS. HE STATES HE DOES NOT KNOW WHY NO ANTIBIOTICS WERE STARTED BUT HE WILL PUT AN ORDER IN FOR SOMETHING
[2017-03-31] VITALS: BP 116/56
--- NOTE | 2017-03-31 01:56 | NUR ---
24 HR chart check completed.
[2017-03-31 07:53] VITALS: BP 118/60
[2017-03-31 09:23] LABS: BASO % 0.6 % (0.0-1.0); EOS # 0.1 10*3/uL (0.0-0.4); HEMATOCRIT 30.3 % (37.0-47.0); HEMOGLOBIN 9.7 g/dl (12.0-16.0); LYMPH % 18.8 % (27.0-41.0); MEAN CELL VOLUME 98.4 fl (81.0-99.0); MEAN CORPUSCULAR HGB 31.5 pg (27.0-31.0); MONO # 0.6 10*3/uL (0.1-1.0); MONO % 10.8 % (3.0-9.0); NEUT # 3.5 10*3/uL (2.3-7.9); NEUT % 67.4 % (47.0-73.0); PLATELET COUNT AUTOMATED 111 10*3/uL (130-400); RED BLOOD COUNT 3.08 10*6/uL (4.10-5.10); RED CELL DISTRI WIDTH 17.6 % (0-14.5); WHITE BLOOD COUNT 5.1 10*3/uL (4.8-10.8)
[2017-03-31 09:46] LABS: CREATININE 3.02 mg/dL (0.55-1.02); POTASSIUM 3.4 mmol/L (3.5-5.1)
--- NOTE | 2017-03-31 09:50 | NUR ---
NOTIFIED DR. RAMEY OF CRITICAL LAB VALUE. NO NEW TELMAERS ALEXX.
--- NOTE | 2017-03-31 09:54 | NUR ---
PATIENT SEEN 1:1 OT THIS DATE 20 MINUTES. PATIENT IDENTIFIED BY NAME AND DATE OF . PATIENT COMPLETED SUPINE TO SIT EOB MOD A AND COMPLETED SIT BALANCE EOB MIN A APPROX 8 MINUTES WITH C/O FATIGUE AND REQUESTING TO LIE BACK DOWN. COMPLETED SIT TO SUPINE MOD A. PATIENT COMPLETED GROOMING SEATED EPN MIN A COMB HAIR PATIENT WITH CALL LIGHT AND BED ALARM IN PLACE. NO FURTHER NEEDS VERBALIZED. ANNA ALVARADO
--- NOTE | 2017-03-31 10:00 | NUR ---
PT KNOWS SELF AND WHERE SHE IS, WAS COOPERATIVE TO CARE AND PLEASANT. SAT ON SIDE OF BED WHILE GETTING BATHED AND HAIR GROOMED. MADE BED AND PT LAID DOWN TO REST. JOCELYN LEONARD
--- NOTE | 2017-03-31 11:45 | NUR ---
Faxed patient updates to Jennifer Ledezma for review per request. patient is ok to return to [facility] when medically stable for discharge.
[2017-03-31 16:00] VITALS: BP 117/57
[2017-03-31 20:00] VITALS: BP 111/49
--- NOTE | 2017-03-31 20:00 | NUR ---
PATIENT RESTING IN BED WITH VISITORS AT BEDSIDE. NO NEEDS MADE. NO S/S OF DISTRESS. BED IN LOWEST POSITION, BED ALARM ON, CALL LIGHT IN REACH
--- NOTE | 2017-03-31 20:44 | NUR ---
DR SANTOS AWARE OF BP AND HR. STATES HOLD COREG
[2017-04-01] VITALS: BP 106/47
--- NOTE | 2017-04-01 03:16 | NUR ---
PATIENT RESTING IN BED WITH EYES CLOSED. NO S/S OF DISTRESS. BED IN LOWEST POSITION, BED ALARM ON, CALL LIGHT IN REACH
--- NOTE | 2017-04-01 03:19 | NUR ---
24 HR chart check completed.
[2017-04-01 08:00] VITALS: BP 114/46
--- NOTE | 2017-04-01 08:56 | NUR ---
SITTING UP IN BED EATING BREAKFAST, COOPERATIVE AT PRESENT WITH NURSING CARE BUT REFUSED GETTING LABS DRAWN JOCELYN LEONARD
--- NOTE | 2017-04-01 10:00 | NUR ---
PT WAS HESITANT TO TAKE MORNING MEDS BUT SAID SHE WOULD BECAUSE SHE WANTS TO GO HOME. PT IS RESTING AND REQUESTED LIGHTS TO BE OFF. JOCELYN GONZALEZCC
[2017-04-01 11:57] VITALS: BP 113/53
--- NOTE | 2017-04-01 13:33 | NUR ---
AMBULATED TO THE BATHROOM WITH WALKER AND 2 ASSISTANTS, HAD A MEDIUM FORMED BROWN STOOL, [facility] JOCELYN LEONARD
--- NOTE | 2017-04-01 14:09 | NUR ---
PHYSICAL THERAPY Patient seen this pm 1:1 for therapy sitting up in bedside chair with her Grand daughter present. Patient needed MAX encouragemnt and v/c's for active participation this session performing AAROM therex, B LE, all planes x 10 reps each. After multiple request and encouragement by Grand daughter, patient declined all standing / gait ex stating "I was already up a few times and do not feel like it again." Patient remained in bedside chair with body alarm for safety and call light. Will continue as able per POC with total treatment time 12 minutes including patient education. Sven Campbell, OFFICE MACHINE PUNCH OPERATOR
[2017-04-01 16:00] VITALS: BP 124/54
--- NOTE | 2017-04-01 17:57 | NUR ---
REPORT CALLED TO [facility] AT [facility]. PT TO BE TRANSFERRED VIA AMBULANCE AT 1800.
--- NOTE | 2017-04-01 18:32 | NUR ---
PT TRANSPORTED AT THIS TIME VIA [facility] TO [facility] FOR A HIGHER LEVEL OF CARE.
--- NOTE | 2017-04-02 15:49 | NUR ---
OCCUPATIONAL THERAPY CO-SIGN I approve of the Occupational Therapy notes written above. JAYLA SYKES OTR/Yoko
--- NOTE | 2017-04-02 17:11 | NUR ---
PHYSICAL THERAPY CO-SIGN I approve of the Phyical Therapy notes written above. LIONEL SONG
== END 2017-04-01 18:32 | disposition short-term general hospital (02) | DRG 291 ==
LOC: ED 11:32 → 4E 14:30 → EDHOLD 14:30 → 4E 14:37
PROVIDERS: Emergency Medicine; Internal Medicine; Internal Medicine Cardiovascular Disease; Internal Medicine Critical Care Medicine; Physician Assistant; Registered Nurse; Student in an Organized Health Care Education/Training Program; ADMIT Internal Medicine
PROC: 0W9B3ZX Drainage of Left Pleural Cavity, Percutaneous Approach, Diagnostic (ICD-10-PCS; principal; 2017-03-29)
PROC: 0W993ZX Drainage of Right Pleural Cavity, Percutaneous Approach, Diagnostic (ICD-10-PCS; principal; 2017-03-29)
DX: I13.0 Hypertensive heart and chronic kidney disease with heart failure and stage 1 through stage 4 chronic kidney disease, or unspecified chronic kidney disease (principal); I50.33 Acute on chronic diastolic (congestive) heart failure; J96.21 Acute and chronic respiratory failure with hypoxia; E44.0 Moderate protein-calorie malnutrition; E87.3 Alkalosis; J90 Pleural effusion, not elsewhere classified; N18.4 Chronic kidney disease, stage 4 (severe); N17.9 Acute kidney failure, unspecified; D53.9 Nutritional anemia, unspecified; I48.0 Paroxysmal atrial fibrillation; Z99.81 Dependence on supplemental oxygen; E83.41 Hypermagnesemia; D63.8 Anemia in other chronic diseases classified elsewhere; E78.5 Hyperlipidemia, unspecified; I25.10 Atherosclerotic heart disease of native coronary artery without angina pectoris; R73.9 Hyperglycemia, unspecified; R74.8 Abnormal levels of other serum enzymes; T50.2X5A Adverse effect of carbonic-anhydrase inhibitors, benzothiadiazides and other diuretics, initial encounter; F03.90 Unspecified dementia, unspecified severity, without behavioral disturbance, psychotic disturbance, mood disturbance, and anxiety; R53.81 Other malaise; Z66 Do not resuscitate; Z88.8 Allergy status to other drugs, medicaments and biological substances; Z79.82 Long term (current) use of aspirin; Z79.899 Other long term (current) drug therapy; Z95.5 Presence of coronary angioplasty implant and graft; Z90.49 Acquired absence of other specified parts of digestive tract; Z98.42 Cataract extraction status, left eye; Z98.41 Cataract extraction status, right eye; Z90.710 Acquired absence of both cervix and uterus; I25.2 Old myocardial infarction; Z88.6 Allergy status to analgesic agent; Z91.018 Allergy to other foods; Y92.89 Other specified places as the place of occurrence of the external cause; Z68.29 Body mass index [BMI] 29.0-29.9, adult